=== PATIENT | female | born 1995 | race African-American/Black ===

== ENCOUNTER 2022-01-03 05:58 | Inpatient (IN) ==
[2022-01-03] MEDS ORDERED: Ondansetron 4 MG/2 ML VIAL IVP PRN (07:31)
[2022-01-03] MEDS ORDERED: *HR* Nalbuphine 10 MG/ML AMPUL IV PRN (07:31)
[2022-01-03] MEDS ORDERED: Famotidine 20 MG/2 ML VIAL IVP PRN (07:31)
[2022-01-03] MEDS ORDERED: Metoclopramide 10 MG/2 ML VIAL IVP PRN (07:31)
[2022-01-03] MEDS ORDERED: Lidocaine 1% 20 ML MDV ID PRN (07:31)
[2022-01-03] MEDS ORDERED: Naloxone 0.4 MG/ML INJ IVP PRN (07:31)
[2022-01-03] MEDS ORDERED: Azithromycin 500 MG in 0.9 % Sodium Chloride 250 ML IVPB PRN (07:31)
[2022-01-03] MEDS ORDERED: EPHEDrine 50 MG/ML VIAL IVP PRN (07:39)
[2022-01-03 07:42] LABS: Basophils % 0.4 %; Eosinophils # 0.1 K/mcL (0.0-0.6); Eosinophils % 1.1 %; Hematocrit 41.4 % (35.3-44.9); Immature Granulocytes % 0.9 % (0-4); Lymphocytes # 1.9 K/mcL (0.6-4.6); Lymphocytes % 16.7 %; Mean Corpuscular HGB Conc 33.8 g/dL (31.6-35.5); Mean Corpuscular Hemoglobin 29.9 pg (28.0-33.3); Mean Corpuscular Volume 88.3 fL (83.0-100.0); Mean Platelet Volume 13.1 fL (9.4-12.4); Monocytes # 0.7 K/mcL (0.0-1.3); Neutrophils # 8.3 K/mcL (1.6-8.9); Platelet Count 195 K/mcL (140-400); Red Blood Count 4.69 M/mcL (3.82-4.97); Red Cell Distribution Width 13.7 % (11.5-14.5); Segmented Neutrophils % 74.9 %; White Blood Count 11.1 K/mcL (4.3-11.1)
[2022-01-03] MEDS ORDERED: Oxytocin 30 UNIT/503 ML BAG IVC SCH (07:45)
[2022-01-03] MEDS ORDERED: Epidural Premix (fent/bupiv) 110 ML EP SCH (07:45)
[2022-01-03] MEDS ORDERED: Ringers Solution, Lactated 1,000 ML IVC SCH (07:45)
[2022-01-03] MEDS: miSOPROStoL 25 MCG TABLET PO PRN ×2 (08:03→12:54)
[2022-01-03 08:24] LABS: Influenza A PCR Negative (Negative); Influenza B PCR Negative (Negative); Resp. Syncytial Virus PCR Negative (Negative)
[2022-01-03 08:25] LABS: SARS-CoV-2 by PCR (In House) Negative (Negative)
[2022-01-03 10:00] LABS: Amphetamine Screen,Urine Negative ng/mL (Cutoff=1000); Barbiturate Screen,Urine Negative ng/mL (Cutoff=200); Benzodiazepines Screen,Urine Negative ng/mL (Cutoff=200); Cannabinoid Screen,Urine Negative ng/mL (Cutoff = 50); Cocaine Screen,Urine Negative ng/mL (Cutoff= 300); Opiate Screen,Urine Negative ng/mL (Cutoff=300); Phencyclidine Screen,Urine Negative ng/mL (Cutoff=25)
[2022-01-04] MEDS ORDERED: Ropivacaine/PF 0.2% 20 ML VIAL ONE (00:23)
[2022-01-04] MEDS ORDERED: *HR* Ropivacaine/PF 0.5% 20 ML VIAL ONE (00:23)
[2022-01-04] MEDS ORDERED: Ondansetron 4 MG/2 ML VIAL ONE (02:43)
[2022-01-04] MEDS ORDERED: Sodium Bicarbonate 50 MEQ/50 ML VIAL ONE (02:44)
[2022-01-04] MEDS ORDERED: Lidocaine/EPI 1:200k 2% PF 20 ML VIAL ONE (02:44)
[2022-01-04] MEDS ORDERED: *HR* FentaNYL (PF) 100 MCG/2 ML VIAL ONE (02:44)
[2022-01-04] MEDS ORDERED: CeFAZolin 2 GM/100 ML BAG IVPB ONE (02:52)
[2022-01-04] MEDS ORDERED: *HR* Midazolam HCl 2 MG/2 ML VIAL ONE (03:12)
[2022-01-04] MEDS ORDERED: *HR* Norepinephrine 4 MG/4 ML VIAL IVC ONE (03:27)
[2022-01-04] MEDS ORDERED: *HR* Oxytocin 10 UNIT/ML VIAL ONE (03:30)
[2022-01-04] MEDS ORDERED: *HR* Morphine Sulfate/PF 10 MG/10 ML AMPUL ONE (03:47)
[2022-01-04] MEDS ORDERED: Promethazine 6.25 MG in Water for inj. (sterile) 20 ML IVPB PRN (04:28)
[2022-01-04] MEDS ORDERED: *HR* HYDROmorphone PF 0.5 MG/0.5 ML SYRINGE IVP PRN (04:28)
[2022-01-04] MEDS ORDERED: Acetaminophen IV 1,000 MG/100 ML BAG IVPB PRN (04:28)
[2022-01-04] MEDS ORDERED: *HR* Nalbuphine 10 MG/ML AMPUL IV PRN ×2 (04:33→06:51)
[2022-01-04] MEDS ORDERED: Loratadine 10 MG TABLET PO PRN ×2 (04:37→06:51)
[2022-01-04] MEDS ORDERED: Ondansetron 4 MG/2 ML VIAL IVP PRN (06:51)
[2022-01-04] MEDS ORDERED: Ringers Solution, Lactated 1,000 ML IVC SCH (06:51)
[2022-01-04] MEDS ORDERED: Oxytocin 30 UNIT/503 ML BAG IVC SCH (06:51)
[2022-01-04] MEDS ORDERED: Rho Immune Globulin 1,500 UNIT SYRINGE IM ONE (06:51)
[2022-01-04] MEDS: Simethicone 80 MG TAB.CHEW PO PRN (10:45)
[2022-01-04] MEDS: Acetaminophen 325 MG TABLET PO SCH ×2 (10:45→17:43)
[2022-01-04] MEDS: Ibuprofen 600 MG TABLET PO SCH ×2 (10:46→17:42)
[2022-01-04] MEDS: metroNIDAZOLE 500 MG TABLET PO SCH ×2 (15:39→20:20)
[2022-01-04] MEDS: cephALEXin 500 MG CAPSULE PO SCH ×2 (15:39→20:19)
[2022-01-04] MEDS: *HR* OxyCODONE Immed Rel 5 MG TABLET PO PRN (20:19)
[2022-01-05] MEDS: Acetaminophen 325 MG TABLET PO SCH ×4 (00:07→17:38)
[2022-01-05] MEDS: Ibuprofen 600 MG TABLET PO SCH ×4 (00:07→19:46)
[2022-01-05 04:04] LABS: Basophils % 0.3 %; Eosinophils % 0.3 %; Hematocrit 28.5 % (35.3-44.9); Immature Granulocytes % 0.7 % (0-4); Lymphocytes # 2.5 K/mcL (0.6-4.6); Lymphocytes % 16.4 %; Mean Corpuscular HGB Conc 33.7 g/dL (31.6-35.5); Mean Corpuscular Hemoglobin 30.1 pg (28.0-33.3); Mean Corpuscular Volume 89.3 fL (83.0-100.0); Mean Platelet Volume 12.2 fL (9.4-12.4); Monocytes # 0.9 K/mcL (0.0-1.3); Monocytes % 5.7 %; Neutrophils # 11.5 K/mcL (1.6-8.9); Platelet Count 149 K/mcL (140-400); Red Blood Count 3.19 M/mcL (3.82-4.97); Segmented Neutrophils % 76.6 %
[2022-01-05 04:09] LABS: Hemoglobin 9.6 g/dL (11.5-15.4)
[2022-01-05] MEDS: Prenatal Vit/FA 1 EACH TABLET PO SCH (07:58)
[2022-01-05] MEDS: cephALEXin 500 MG CAPSULE PO SCH ×2 (07:58→19:46)
[2022-01-05] MEDS: metroNIDAZOLE 500 MG TABLET PO SCH ×2 (07:59→19:46)
[2022-01-05] MEDS: Simethicone 80 MG TAB.CHEW PO PRN (07:59)
[2022-01-05] MEDS: *HR* OxyCODONE Immed Rel 5 MG TABLET PO PRN ×3 (10:17→20:43)
[2022-01-06 00:27] VITALS: O2SAT 97
[2022-01-06] MEDS: Acetaminophen 325 MG TABLET PO SCH ×2 (01:01→08:53)
[2022-01-06] MEDS: Ibuprofen 600 MG TABLET PO SCH ×2 (02:09→08:54)
[2022-01-06] MEDS: *HR* OxyCODONE Immed Rel 5 MG TABLET PO PRN ×2 (02:10→11:02)
[2022-01-06 07:18] VITALS: BP 94/59; PULSE 66; TEMP 97.7
[2022-01-06] MEDS: Prenatal Vit/FA 1 EACH TABLET PO SCH (08:53)
== END 2022-01-06 11:45 | disposition home or self-care (01) | DRG 788 ==
LOC: 1NENULAB 05:58 → 1NENUOBS 01-04 06:51
PROVIDERS: ADMIT Advanced Practice Midwife; ATTEND Advanced Practice Midwife